=== PATIENT | female | born 1970 | race Caucasian/White ===

== ENCOUNTER → 2023-07-27 03:57 | Outpatient (CLI) | payer BC, SELFPAY ==
--- NOTE | 2023-07-27 06:45 | DI.MAMMO_ITS ---
Exam(s) MAMMO SCREENING EXAM: MAMMO SCREENING CLINICAL HISTORY: screening,z12.39 TECHNIQUE: Bilateral full field digital CC and MLO mammographic images were obtained with 3D tomosyn thesis and utilizing computer aided detection (CAD). COMPARISON: Available for comparison. FINDINGS: Masses/Architectural Distortion: There is an irregular 4 mm density in the upper central right breast on the MLO view 4 cm from the nipple. Microcalcifications: No suspicious pleomorphic-type are seen. Skin Thickening/Nipple Retraction: None. IMPRESSION: 1. New 4 mm density in the upper central right breast on the MLO view. 2. Further evaluation with a spot compression views requested. Limited right breast ultrasound may b e indicated at that time. BI-RADS Category 0 - Assessment Incomplete: Need additional imaging evaluation Breast Density - Category A - Almost entirely fatty Breast density category C or D implies that the patient has dense breast tissue. Dense breast tissue is very common and is not abnormal but dense breast tissue can make it harder to find cancer on a ma mmogram. Also, dense breast tissue may increase their breast cancer risk. This information about the result of the mammogram report was provided to the patient to raise their awareness. Use this report when you speak with the patient about their risks for breast cancer, which includes their family hist ory. At that time, you may recommend for more screening tests (Ultrasound or MRI) as they might be us eful based on their risk. A negative radiographic report should not delay biopsy if a dominant or clinically suspicious mass is present. Up to ten percent of cancers are not identified on mammography. A negative report may reinforce clinical impression. Adenosis and dense breasts may obscure an underlying neoplasm. False positive reports average 6 to 10%. Patient will receive a letter notifying them of these results.
--- NOTE | 2023-07-27 08:22 | DI.CTLCSR_ITS ---
Exam(s) CT CHEST LUNG CANCER SCREEN EXAM: CT CHEST LUNG CANCER SCREEN CLINICAL HISTORY: Screening for lung cancer,current smoker,f17.210 TECHNIQUE: Imaging Protocol: Axial computed tomography images with coronal and sagittal reformatted images were created and reviewed COMPARISON: No exams were available for comparison FINDINGS: Tracheobronchial tree: Patent where visualized. Pulmonary parenchyma: No consolidation or dominant measurable mass. No architectural distortion. Lung Nodules: None. Mediastinum and [place]: No dominant adenopathy or fluid collection. The esophagus is unremarkable. Thyroid gland: Unremarkable. Lymph nodes: Unremarkable. Pleura: No effusion or pneumothorax. Heart: The heart is not dilated. Mild coronary artery calcification. No pericardial effusion. Aorta: Thoracic aorta non-dilated. Upper abdomen: Unremarkable. Soft Tissues: Unremarkable. Bones: Within normal limits. IMPRESSION: No pulmonary nodules. Lung RADS Cat 1 - Negative: No nodules and definitely benign nodules Lung-RADS 1.0 CATEGORIES: Category 0 - Prior chest CT exam(s) being located for comparison. Category 1 - Annual screening in 12 months. No nodules or definitely benign nodules. Category 2 - Annual screening in 12 months. Benign appearance. Nodules with low likelihood of becomin g active cancer. Category 3 - 6-month follow-up. Probably benign. Short-term follow-up suggested. Nodules with low lik elihood of becoming active cancer. Category 4A - 3-month follow-up and CT/PET if >8 mm in size. Suspicious finding. Findings which requi re additional testing. Category 4B - Findings which require additional testing and tissue sampling. Suspicious finding. Category 4X - Category 3 or 4 nodules with additional features or imaging findings that increases the suspicion of malignancy. Modifier S- Potentially clinically significant finding. (Non lung cancer) RADIATION DOSE DELIVERED: Total DLP Total DLP DATA REPOSITORY: All CT scans at this facility are submitted to the National Radiology Data Registry (NRDR) Dose Index Registry (DIR) with the [employer] (A[employer]). RADIATION OPTIMIZATION: All CT scans at this facility use at least one of these dose optimization te chniques: automated exposure control; mA and/or kV adjustment per patient size (includes targeted exa ms where dose is matched to clinical indication); or iterative reconstruction.
== END ==
PROVIDERS: PCP Nurse Practitioner; Visit Provider Nurse Practitioner
DX: Z12.31 Encounter for screening mammogram for malignant neoplasm of breast (principal); F17.210 Nicotine dependence, cigarettes, uncomplicated; Z12.2 Encounter for screening for malignant neoplasm of respiratory organs
CPT/HCPCS: 71271; 77063; 77067

== ENCOUNTER → 2023-08-02 04:15 | Outpatient (CLI) | payer BC, SELFPAY ==
--- NOTE | 2023-08-02 | DI.MAMMO_ITS ---
Exam(s) MG MAMMO SCREEN CALL BACK UNI EXAM: MAMMO SCREEN CALL BACK UNI CLINICAL HISTORY: NEW 4MM DENSITY UPPER CENTRAL RT BREAST R92.8 ABNL MAMMO. TECHNIQUE: Craniocaudal and mediolateral oblique digital mammography views of the right breast with Computer Aided Diagnosis followed by Tomosynthesis. COMPARISON: Comparison is made with prior examinations. FINDINGS: Mammography/Tomosynthesis: Masses/Architectural Distortion: The nodular area does not persist on the additional views. No suspi cious nodules or areas of architectural distortion are seen. Microcalcifictions: No suspicious pleomorphic-type are seen. Skin Thickening/Nipple Retraction: None. IMPRESSION: 1. No evidence of malignancy is noted. 2. Unless there is more urgent need, follow-up screening mammography is recommended, as per [employer] guidelines. 3. The findings were discussed with the patient on the date of the examination. BI-RADS Category 1 - Negative Breast Density - Category B - Scattered areas of fibroglandular density Breast density Category C or D implies that the patient has dense breast tissue. Dense breast tissue can make it harder to find cancer on a mammogram. Dense breast tissue is also associated with an incr eased risk of breast cancer. This information about the result of the mammogram report was provided to the patient to raise their awareness. Use this report when you speak with the patient about their risks for breast cancer, which includes their family history. At that time, you may recommend additional screening tests (Ultrasoun d or MRI) as these tests may add significant information. A negative radiographic report should not delay biopsy if a dominant or clinically suspicious mass is present. Up to ten percent of cancers are not identified on mammography. A negative report may reinforce clinical impression. Adenosis and dense breasts may obscure an underlying neoplasm. False positive reports average 6 to 10%. Patient will receive a letter notifying them of these results.
== END ==
PROVIDERS: PCP Nurse Practitioner; Visit Provider Nurse Practitioner
DX: R92.8 Other abnormal and inconclusive findings on diagnostic imaging of breast (principal)
CPT/HCPCS: 77063; 77067

== ENCOUNTER 2024-06-16 00:48 | Outpatient (CLI) | payer BC, SELFPAY ==
[2024-06-16 08:25] LABS: HCT 37.5 % (36.0-46.0); HGB 12.2 g/dL (11.2-15.7); MCHC 32.5 % (32.0-36.0); MCV 92 fL (80-95); MPV 10.2 fL (8.0-11.0); Platelet Count 313 10^3/uL (130-400); RBC 4.07 10^6/uL (3.93-5.22); RDW 13.2 % (11.7-14.6); RDW-SD 44.7 fL; WBC 11.25 10^3/uL (4.4-10.8)
[2024-06-16 08:44] LABS: ALT 18 U/L (14-59); AST 12 U/L (15-37); Albumin 3.6 g/dL (3.4-5.0); Alkaline Phosphatase 92 U/L (46-116); Anion Gap 12.2 mmol/L (3-11); BUN 16 mg/dL (7-18); Bilirubin, Total 0.31 mg/dL (0.2-1.0); CO2 21.8 mmol/L (21.0-32.0); CREATININE 1.3 mg/dL (0.55-1.02); Calcium 8.8 mg/dL (8.5-10.1); Calculated LDL 118 mg/dL (<100); Chloride 110 mmol/L (98-107); Cholesterol 193 mg/dL (<200); Estimated GFR 48.56 (mL/min/1.73m2); Glucose 118 mg/dL (74-106); HDL Cholesterol 58 mg/dL (40-60); Potassium 4.2 mmol/L (3.5-5.1); Sodium 144 mmol/L (136-145); Total Protein 7.1 g/dL (6.4-8.2); Triglyceride 86 mg/dL (<150)
== END 2024-06-16 00:49 | disposition home or self-care (01) ==
PROVIDERS: PCP Nurse Practitioner; Referring Provider Nurse Practitioner; Visit Provider Nurse Practitioner
DX: E11.9 Type 2 diabetes mellitus without complications (principal); E78.00 Pure hypercholesterolemia, unspecified; I10 Essential (primary) hypertension
CPT/HCPCS: 36415; 80053; 80061; 85027

== ENCOUNTER 2024-08-12 21:05 | Emergency (ER) | payer BC, SELFPAY ==
[2024-08-12] VITALS (43 sets, daily range): BP systolic 77–165; BP diastolic 46–133; PULSE 72–137; RESP 12–24; TEMP 36.9; O2SAT 95–100
--- NOTE | 2024-08-12 21:00 | RT.EKG_ITS ---
APPROVED REPORT Exam: Resting ECG Reason for Exam: dizziness with Fall Patient Location: E HR:84 bpm ECG Measurements Heart Rate 84 AXIS OR 197 P 55 QRSd 85 QRS 7 QT 384 T 53 QTc 454 Conclusion Sinus rhythm...normal P axis, V-rate 60- 99 Low voltage, precordial leads...precordial leads <1.0mV
--- NOTE | 2024-08-12 21:32 | ED.GENADUL_ITS ---
Discharge Plan Disposition Patient Disposition: Home Condition: Good Discharge Details Chief Complaint: Dizzy/Sync Clinical Impression: Dizziness, Laceration of lip Primary Care Provider: Pilar Chi ED Provider: Renny Johnson Home Meds and New Rx's Prescriptions: No Action aspirin 81 mg tablet,delayed release (DR/EC) 81 mg PO HS dulaglutide 3 mg/0.5 mL pen injector 3 mg subcut QWEEK Qty: 2 6RF lisinopril 20 mg tablet 20 mg PO DAILY Qty: 90 3RF pravastatin 20 mg tablet 20 mg PO DAILY Qty: 90 3RF topiramate 25 mg tablet 25 mg PO BID Qty: 180 3RF aripiprazole 5 mg tablet 5 mg PO QHS Qty: 90 1RF fluoxetine 20 mg tablet 20 mg PO DAILY MDD 80 mg Qty: 90 1RF fluoxetine 60 mg tablet 60 mg PO QAM MDD 80 mg Qty: 90 1RF lorazepam 0.5 mg tablet 0.5 mg PO DAILY PRN (Reason: anxiety) Qty: 30 1RF ibuprofen 600 mg tablet 600 mg PO TID Qty: 270 1RF Discharge Instructions Instructions: Laceration Repair With Stitches ED, Dizziness, Adult ED Additional Instructions: You were seen in the emergency department for a dizziness episode that led to a fall. We performed labs, EKG, and chest x-ray that were all unremarkable. We repaired the laceration to your right lower lip with 2 stitches. If this does not fall out on its own in the next few days you should have the stitches removed in about 5 days. Keep the area clean and dry. In regards to your dizziness the exact source is not known. You should talk to your primary care doctor about going dose on your lisinopril dosing as this may be contributing. If you develop recurrent dizziness, chest pain, shortness of breath, or any other symptoms that are worrisome to you then please return to the emergency department. Referrals: Pilar Chi, RGEINE [Primary Care Provider] - 1 week HPI General Mode of arrival: EMS . Date/Time Provider Initiated Documentation: 08/12/24 21:26 . Limitations to Documentation: no limitations . Information obtained by: patient . HPI Narrative: This is a 54-year-old female who presents after syncopal episode. She has been dealing with dizziness for the last few months. Gets worse with standing and better with rest. No chest pain or shortness of breath associated with these events. Today was standing out of chair and got lightheaded and fell forward. She did not faint but she hit her lower lip on the a piece of furniture. No headache. No symptoms preceding this episode. Now back to normal with no dizziness and no other complaints. No recent medication changes. Related Data Home Medications ?Medication ?Instructions ?Recorded ?Confirmed aspirin 81 mg tablet,delayed 81 mg PO HS 07/06/23 08/12/24 release ibuprofen 600 mg tablet 600 mg PO TID pain/fibromyalgia 01/17/24 08/12/24 #270 tabs dulaglutide 3 mg/0.5 mL 3 mg (0.5 mL) subcut QWEEK #2 mL 04/04/24 08/12/24 subcutaneous pen injector lisinopril 20 mg tablet 20 mg PO DAILY #90 tabs 04/04/24 08/12/24 pravastatin 20 mg tablet 20 mg PO DAILY #90 tabs 04/04/24 08/12/24 topiramate 25 mg tablet 25 mg PO BID #180 tabs 04/04/24 08/12/24 aripiprazole 5 mg tablet 5 mg PO QHS #90 tabs 07/06/24 08/12/24 fluoxetine 20 mg tablet 20 mg PO DAILY #90 tabs 07/06/24 08/12/24 fluoxetine 60 mg tablet 60 mg PO QAM #90 tabs 07/06/24 08/12/24 lorazepam 0.5 mg tablet 0.5 mg PO DAILY PRN anxiety #30 07/07/24 08/12/24 tabs Previous Rx's ?Medication ?Instructions ?Recorded ibuprofen 600 mg tablet 600 mg PO TID pain/fibromyalgia 01/17/24 #270 tabs dulaglutide 3 mg/0.5 mL 3 mg (0.5 mL) subcut QWEEK #2 mL 04/04/24 subcutaneous pen injector lisinopril 20 mg tablet 20 mg PO DAILY #90 tabs 04/04/24 pravastatin 20 mg tablet 20 mg PO DAILY #90 tabs 04/04/24 topiramate 25 mg tablet 25 mg PO BID #180 tabs 04/04/24 aripiprazole 5 mg tablet 5 mg PO QHS #90 tabs 07/06/24 fluoxetine 20 mg tablet 20 mg PO DAILY #90 tabs 07/06/24 fluoxetine 60 mg tablet 60 mg PO QAM #90 tabs 07/06/24 lorazepam 0.5 mg tablet 0.5 mg PO DAILY PRN anxiety #30 07/07/24 tabs Allergies Allergy/AdvReac Type Severity Reaction Status Date / Time duloxetine (From Cymbalta) Allergy Intermediate Other (See Verified 08/12/24 21:17 Comment) Penicillins AdvReac Severe Hives Verified 08/12/24 21:17 bupropion (From Wellbutrin) AdvReac Intermediate Other (See Verified 08/12/24 21:17 Comment) doxepin AdvReac Intermediate Other (See Verified 08/12/24 21:17 Comment) gabapentin AdvReac Intermediate Other (See Verified 08/12/24 21:17 Comment) nortriptyline AdvReac Intermediate Other (See Verified 08/12/24 21:17 Comment) venlafaxine (From Effexor) AdvReac Intermediate Other (See Verified 08/12/24 21:17 Comment) lamotrigine AdvReac Mild Other (See Verified 08/12/24 21:17 Comment) Amlodipine-Atorvastatin Allergy Intermediate Other (See Uncoded 08/12/24 21:17 Comment) Aatorvastin AdvReac Intermediate Other (See Uncoded 08/12/24 21:17 Comment) General Stated Complaint: Dizzy/Sync ANTWON: 3 Review of Systems Constitutional Constitutional: Denies chills, Denies fever(s) and Denies headache(s) Eyes Eyes: Denies change in vision ENT Ears, Nose, Mouth, and Throat: Denies headache(s) and Denies odynophagia Comments: Small laceration approximately 1.5 cm in length on the right lower lip. Involves the vermilion border. Cardiovascular Cardiovascular: Denies chest pain and Denies dyspnea Comments: dizzy/presyncope Respiratory Respiratory: Denies dyspnea Gastrointestinal Gastrointestinal: Denies abdominal pain, Denies diarrhea, Denies nausea, Denies odynophagia and Denies vomiting Genitourinary Genitourinary: Denies dysuria Musculoskeletal Musculoskeletal: Denies myalgias Integumentary/Breasts Skin/Breast: Denies changing lesions Neurologic Neurologic: Denies behavioral changes and Denies headache(s) Psychiatric Psychiatric: Denies behavioral changes Endocrine Endocrine: Denies heat intolerance Hematologic/Lymphatic Hematologic/Lymphatic: Denies lymphadenopathy Exam Const General: cooperative Nutritional Appearance: average body habitus Orientation: alert, awake and oriented x3 HENMT Head: normal to inspection Ears: external ears normal Mouth: moist mucous membranes Eyes Pupils: PERRL EOM: EOM intact bilaterally and No nystagmus Neck Neck: full ROM and no tracheal deviation Chest Chest: normal inspection of the chest Resp Auscultation: clear to auscultation bilaterally Cardio Rate: regular rate Rhythm: regular rhythm GI Inspection: normal to inspection Palpation: soft, no guarding, not rigid and nontender Back/Spine/Pelvis Back: No no CVA tenderness Thoracic/Lumbar Spine: thoracic and lumbar spine normal to inspection Skin General skin exam: no rashes or lesions noted Neuro General: patient alert, patient awake and patient oriented x3 Cranial Nerves: CN's II-XI intact bilaterally, PERRL and no nystagmus Cognition: normal cognition Motor: muscle tone normal throughout and strength 5/5 throughout Sensory Exam: no sensory deficits noted Extrem General: normal to inspection Course Vital Signs Vital signs: Vital Signs Temperature 36.9 C 08/12/24 21:14 Pulse 90 08/12/24 21:14 Respiratory Rate 18 08/12/24 21:14 Blood Pressure 110/67 08/12/24 21:14 Pulse Oximetry 95 08/12/24 21:14 Temperature 36.9 C 08/12/24 21:14 Temperature Source Oral 08/12/24 21:14 Pulse 90 08/12/24 21:14 Respiratory Rate 18 08/12/24 21:14 Blood Pressure 110/67 08/12/24 21:14 Pulse Oximetry 95 08/12/24 21:14 Oxygen Delivery Method Room Air 08/12/24 21:14 Oxygen Flow Rate 0 08/12/24 21:14 Procedure Laceration right lower lip laceration: Standard Time Out Performed: Yes Patient Consented: Verbally Site: other (right lower lip) Description: linear and involves jay border Depth: simple, single layer Local anesthetic: LET(lidocaine epinephrine tetracaine) Pre-repair:: wound explored, irrigated extensively and deep structures intact Skin layer closed with: vicryl Suture size: 4-0 Number of sutures:: 2 Technique:: simple interrupted Complications: None Medical Decision Making 54-year-old female presents after an episode of dizziness with a lower lip laceration. Applied LET and repaired the laceration to the right lower lip shortly after arrival with good approximation. Unclear cause of her dizzy spells over the last few months. EKG is sinus rhythm with no signs of arrhythmia and normal intervals. No further concern for arrhythmia or acute coronary syndrome. Labs grossly unremarkable with no anemia or electrolyte or metabolic derangements that could be contributing. Cardiac enzymes unremarkable. No focal symptoms otherwise or infectious symptoms such as fever to suggest another source. Chest x-ray unremarkable with no pneumonia or pneumothorax. She did have some mildly low blood pressure on arrival that responded to IV fluids. She could be on too high of dosing for her blood pressure medications given the long duration of the intermittent dizziness over the last few months and she has lost some weight. I told to follow-up with her primary care doctor to consider decreasing dose of lininopril. Will discharge with return precautions. Medical Records Medical records reviewed: Yes I reviewed the patient's medical records. Imaging Data Radiologic Study: Attestation: I personally reviewed and interpreted this imaging study as follows: Imaging: X-Ray (chest) My impression: Chest x-ray unremarkable Lab Data Lab results reviewed: Yes I reviewed the patient's lab results. Lab results narrative: Labs grossly unremarkable ECG Data Attestation: I personally reviewed and interpreted this ECG (s) as follows: Prior ECG tracings: available for review Interpretation: Normal sinus rhythm with normal rate. Normal axis and VT intervals. No ST or T wave changes. Unremarkable and consistent with prior EKGs. Quality:SDOH Health Related Social Needs: Health related social needs details x PFSH All Active Problems (Updated 08/12/24 @ 22:58 by Renny Johnson MD) Laceration of lip (Acute) Dizziness (Acute) Eating disorder (Acute) Allergic rhinitis (Acute) Daily headache (Acute) Nicotine dependence (Acute) Anxiety (Chronic) Lumbosacral spondylosis with myelopathy (Acute) Type 2 diabetes mellitus (Acute) Family history of polyps in the colon (Acute) Premature menopause (Acute) Grief at loss of child (Acute) Depressive disorder (Chronic) Pruritic disorder (Acute) Low back pain (Acute) Pure hypercholesterolemia (Acute) Fibromyositis (Acute) Morbid obesity (Acute) Insomnia (Acute) Left ventricular hypertrophy (Acute) Essential (primary) hypertension (Acute) Migraine (Chronic) Bipolar 2 disorder (Acute) Medical History Persistent vomiting Surgical History H/O tubal ligation Hx of foot surgery Family History Daughter Alcohol use disorder Anxiety Depression Diabetes Bipolar 2 disorder Mother Anxiety Depression Hypertension High cholesterol Fibromyalgia Colon polyp Maternal Grandmother Anxiety Stomach cancer Depression Colon cancer Sister Anxiety Depression Fibromyalgia Father , at 57 noncompliant DM ( at home) Diabetes Cancer Daughter , of at PE Pulmonary embolism Brother High cholesterol Colon cancer Stomach cancer Social History Smoking/Tobacco Use Status: Former Tobacco Use Tobacco: How many years used: 25 Quit status: has quit before Smoking risk assessment performed?: Yes Alcohol Intake: never Drug use: Socially Substance use type: marijuana Counseling given: Yes (vapes daily) Counseling provided: provider counseling Adopted: No Caregiver/Support person: No Foster care: No Household members: other Details: life partner Housing: house Number of Children: 3 number of grandchildren: 1 Communication Needs: None Education Level: high school Do you need help understanding health information?: Often current occupation: Home Care Provider Pets and animals: Yes (2) Pets and animals: dog(s) Sexually active: Yes Do you think of yourself as: lesbian/ellis/homosexual Current gender identity: female What is your relationship status?: living with partner How often do you talk on the phone with friends or family?: three or more times per week How often do you get together with friends or relatives?: once per week Do you belong to any clubs or organized social groups?: no Panel score (0-1 are the most socially isolated patients): 2 What type of physical activity do you participate in: walking Duration: 15-30 minutes/day Frequency: 3-4 times per week Elza/Scientology: Confucianism Special elza needs: No Seatbelt use: always Helmet use: Yes Helmet use: sometimes Drive intox or ride w/intox sprinkling truck driver: No Do you feel safe at home: Yes Do you feel safe in your relationship?: Yes
[2024-08-12 21:47] LABS: Abs Immature Grans 0.05 10^3/uL (0.0-0.06); Absolute Basophil Count 0.08 10^3/uL (0.0-0.2); Absolute Eosinophil Count 0.52 10^3/uL (0.0-0.7); Absolute Lymphocyte Count 2.37 10^3/uL (1.2-3.4); Absolute Monocyte Count 0.51 10^3/uL (0.1-0.8); Basophils % 0.7 %; Eosinophils % 4.6 %; HGB 12.2 g/dL (11.2-15.7); Immature Grans % 0.4 %; Lymphocytes % 20.8 %; MCHC 32.1 % (32.0-36.0); MCV 94 fL (80-95); MPV 10.6 fL (8.0-11.0); Monocytes % 4.5 %; Platelet Count 289 10^3/uL (130-400); RBC 4.06 10^6/uL (3.93-5.22); RDW 12.9 % (11.7-14.6); RDW-SD 44.1 fL; WBC 11.41 10^3/uL (4.4-10.8)
[2024-08-12 21:50] LABS: Absolute Neutrophil Count 7.87 10^3/uL (1.2-6.7)
[2024-08-12] MEDS: Normal Saline 1,000 ML 1000 ML IV ×2 (21:54→23:24)
[2024-08-12] MEDS: Lidocaine/Epinephri/Tetracaine Topical Gel 3 ML TP (21:55)
[2024-08-12 22:11] LABS: ALT 19 U/L (14-59); AST 14 U/L (15-37); Albumin 3.5 g/dL (3.4-5.0); Alkaline Phosphatase 82 U/L (46-116); Anion Gap 10.3 mmol/L (3-11); BUN 18 mg/dL (7-18); Bilirubin, Total 0.2 mg/dL (0.2-1.0); CO2 22.7 mmol/L (21.0-32.0); CREATININE 1.1 mg/dL (0.55-1.02); Calcium 8.9 mg/dL (8.5-10.1); Chloride 107 mmol/L (98-107); Estimated GFR 59.34 (mL/min/1.73m2); Glucose 122 mg/dL (74-106); Lipase 59 U/L (<78); Magnesium 1.8 mg/dL (1.8-2.4); NT-proBNP 100 pg/mL (<300); Potassium 3.7 mmol/L (3.5-5.1); Sodium 140 mmol/L (136-145); Total Protein 6.8 g/dL (6.4-8.2); Troponin I 6 ng/L (<or=51)
--- NOTE | 2024-08-12 22:56 | DI.RAD_ITS ---
Exam(s) XR PORTABLE CHEST AP EXAM: XR PORTABLE CHEST AP CLINICAL HISTORY: syncope TECHNIQUE: 2D digital imaging was performed. COMPARISON: No exams were available for comparison FINDINGS: LUNGS: Clear. No pleural abnormality seen. HEART: Normal size. AORTA: Normal diameter. BONES: Unremarkable for age. Soft tissues: Unremarkable. IMPRESSION: No acute findings. DATA REPOSITORY: RADIATION DOSE DELIVERED:
--- NOTE | 2024-08-12 23:48 | DI.VRAD_ITS ---
PROCEDURE INFORMATION: Exam: XR Chest Exam date and time: 08/12/2024 10:58 PM Age: 54 years old Clinical indication: Other: Syncope TECHNIQUE: Imaging protocol: Radiologic exam of the chest. Views: 1 view. COMPARISON: CT CHEST LUNG CANCER SCREEN 07/27/2023 8:17 AM FINDINGS: Lungs: Unremarkable. No consolidation. Pleural spaces: Unremarkable. No pleural effusion. No pneumothorax. Heart/Mediastinum: Unremarkable. No cardiomegaly. Bones/joints: Unremarkable. IMPRESSION: No acute findings. Dictated and Authenticated by: Neil Delvalle MD. Orderin Elizabeth Lawson MD
[2024-08-13] VITALS: PULSE 78; RESP 19; O2SAT 97
[2024-08-13 00:01] VITALS: BP 99/45; PULSE 74; RESP 18; O2SAT 97
== END 2024-08-13 00:21 | disposition home or self-care (01) ==
PROVIDERS: Emergency Provider Student in an Organized Health Care Education/Training Program; PCP Nurse Practitioner
DX: R55 Syncope and collapse (principal); S01.511A Laceration without foreign body of lip, initial encounter; R42 Dizziness and giddiness; I10 Essential (primary) hypertension; E78.00 Pure hypercholesterolemia, unspecified; E11.9 Type 2 diabetes mellitus without complications; Z79.85 Long-term (current) use of injectable non-insulin antidiabetic drugs
CPT/HCPCS: 36415; 80053; 83690; 93005; 96360; 96361; 99285; 71045; 83735; 83880; 84484; 85025; 93010

== ENCOUNTER 2024-12-13 01:23 | Outpatient (CLI) | payer BC, SELFPAY ==
--- NOTE | 2024-12-13 07:30 | DI.US_ITS ---
APPROVED REPORT EXAM: Comprehensive 2D, Doppler, and color-flow Echocardiogram Patient Location: Out-Patient Clinical Research Monitor: Sherri Elizalde RDCS (AE) Indications: Left Ventricular Hypertrophy Other Information Study Quality: Adequate Conclusion Normal left ventricular wall thickness and chamber size. Ejection fraction is 57%. Wall motion is normal Normal right ventricular size and function Both atria are normal in size There is no structural or hemodynamically significant valvular disease Estimated right ventricular systolic pressure is 23 mmHg Wall motion Left Ventricle The left ventricle is normal size. The left ventricular systolic function is normal. The left ventricular ejection fraction is within the normal range. There is normal left ventricular wall thickness. There is normal LV segmental wall motion. There is no ventricular septal defect visualized. LVEF is 57%. Right Ventricle The right ventricle is normal size. The right ventricular systolic function is normal. Atria The left atrium size is normal. The right atrium size is normal. The interatrial septum is intact with no evidence for an atrial septal defect. Aortic Valve The aortic valve is normal in structure. Aortic valve is trileaflet. There is no aortic valvular stenosis. No aortic regurgitation is present. Mitral Valve The mitral valve is normal in structure. No evidence of mitral valve stenosis. Trace mitral regurgitation. Tricuspid Valve The tricuspid valve is normal in structure. There is no tricuspid valve stenosis. Trace tricuspid regurgitation. The RVSP is 22.8mmHg. Pulmonic Valve The pulmonary valve is normal in structure. There is no pulmonic valvular stenosis. Trace pulmonic regurgitation. Great Vessels The aortic root is normal in size. The ascending aorta is normal in size. Aortic arch is normal in caliber. IVC is normal in size and collapses >50% with inspiration. Pericardium There is no pericardial effusion. 2D Dimensions IVSD d PLAX 0.80 cm F: 0.6-1.0 Ao Root d 2.95 cm F: 2.7 - 3.3 LVPW d PLAX 0.83 cm F: 0.6 - 1.0 Ao Asc Diam d 3.03 cm F: 2.3 - 3.1 LVID d PLAX 4.68 cm F: 3.8 - 5.2 LVDs 3.27 cm F: 2.2 - 3.5 LV EF Teichholz 57.2 % FS 29.98 % LV EDV (Teich) 101.2 mL LV ESV (Teich) 43.3 mL M-Mode TAPSE 1.52 cm (M/F) >1.7 Auto EF LV EDV A4C 95.2 mL LV EDV A2C 95.2 mL LV EDV BP 96.5 mL LV ESV A4C 41.2 mL LV ESV A2C 39.5 mL LV ESV BP 41.2 mL LVEF(%) A4C 56.7 % LVEF(%) A2C 58.5 % LVEF(%) BP 57.3 % LV SV A4C 54.0 ml LV SV A2C 55.8 ml LV SV BP 55.3 ml LV CO A4C 3.5 L/min LV CO A2C 3.8 L/min LV CO BP 3.7 L/min HR A4C 64.40 BPM HR A2C 68.81 BPM LV EDV Index (BP) LV Strain Long Pk Overal Avg (s) 16.96 LA Volume LA Length A4C 4.6 cm LA Length A2C 4.8 cm LA Area A4C s 11.60 cm2 LA Area A2C s 16.84 cm2 LA Vol A4C A-L 24.84 mL LA Vol A2C A-L 50.16 mL LA Vol Biplane A-L 36.1 mL LA Vol/BSA A4C A-L LA Vol/BSA A2C A-L LA Vol/BSA BP A-L 19.2 mL/m2 LA Vol A4C MOD 23.0 mL LA Vol A2C MOD 46.1 mL LA Vol BP MOD 33.2 mL RA Volume RA Area A4C 11.4 cm2 RA ESV A4C (A-L) 23.5mL RA Vol/BSA A4C A-L RA Length A4C 4.7 cm RA ESV A4C (MOD) 22.5mL LV Diastology MV E' medial 0.075 (>0.07 m/s) MV E Vmax 0.81 (0.4-1.3 m/s) MV E/E' MED 10.73 (<14) MV A Vmax 0.80 (0.4-1.3 m/s) MV E' lateral 0.136 (>0.1 m/s) E/A Ratio 1.0 MV E/E' LAT 5.94 (<14) MV E' Average 0.106 m/s MV E/E'(average) 7.65 Aortic Valve AoV Vmax 1.28 m/s LVOT Vmax 0.99 m/s AoV Peak Grad 6.6 mmHg LVOT Peak Grad 4.0 mmHg AoV Area (Vmax) 2.49 cm2 LVOT VTI 0.229 m AoV VTI 0.326 m LVOT Mean Grad 2.1 mmHg AoV Mean Eddie. 0.90 m/s LVOT SV 73.57 mL AoV Mean Grad 3.7 mmHg LVOT Diam s 2.00 cm AoV Area (VTI) 2.26 cm2 AV Regurg Peak Gr. 6.60 mmHg Velocity Ratio 0.77 Mitral Valve MV DT 141 (160-240 msec) MV Vmax TIPS 0.77 m/s MV Mean Grad 1.2 (<2mmHg) MV VTI 0.264 m Pulmonary Valve PV Vmax 1.03 (0.5-1.5 m/s) RVOT Vmax 0.73 m/s PV Peak Grad 4.3 mmHg RVOT Peak Gr. 2.1 mmHg PV Mean Eddie 0.73 m/s RVOT VTI 0.168 m PV Mean Grad 2.4 mmHg RVOT Mean Gr. 1.2 mmHg Tricuspid Valve RA Pressure 3.00 mmHg TR Vmax 2.23 m/s TV S' 0.10 m/s TR Peak Grad 19.8 mmHg RVSP (TR) 22.8 mmHg
== END 2024-12-13 01:43 ==
PROVIDERS: PCP Family Medicine; Visit Provider Internal Medicine Cardiovascular Disease
DX: I51.7 Cardiomegaly (principal)
CPT/HCPCS: 93306